=== PATIENT | female | born 1960 | race Caucasian/White ===

== ENCOUNTER 2018-07-22 19:30 | Emergency (ER) | payer BC ==
[2018-07-22] MEDS ORDERED: NS 500 ML IV ONE (20:17)
--- NOTE | 2018-07-22 20:24 | EDPHY ---
H & P Time Seen by Provider: 07/22/18 19:55 HPI/ROS: CHIEF COMPLAINT: "I do not feel great" HISTORY OF PRESENT ILLNESS: Patient is a 58-year-old female who presents emergency department with multiple complaints. The patient states that she felt ill over the weekend. She 1st noticed palpitations on Friday. She was seen at an outside urgent care and then emergency department. She was ultimately sent home. On Friday she developed a fever to 101. She had mild abdominal discomfort with diarrhea. No nausea or vomiting. 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 She continues to feel fatigued and not herself. She is mildly lightheaded. She currently has no abdominal pain. No nausea vomiting. The patient denies dysuria frequency. No cough or shortness of breath. No chest pain. The patient was concerned that her symptoms could be related to altitude illness. The patient moved here from [place] 3 weeks ago. REVIEW OF SYSTEMS: My complete review of systems is negative except as mentioned in the HPI. Past Medical/Surgical History: Includes liver hematoma, traumatic brain injury, panic attack, renal insufficiency Past surgical history: Tubal ligation Smoking Status: Never smoked Physical Exam: Vitals noted GENERAL: Well-appearing, in no acute distress, alert. HEENT: Eyes normal to inspection, normal pharynx, no signs of dehydration. NECK: No thyromegaly, no lymphadenopathy, supple. RESPIRATORY: Clear to auscultation bilaterally, no rales, rhonchi or wheezing. CVS: Regular rate and rhythm, no rubs, murmurs, or gallops. ABDOMEN: Soft, nontender, nondistended, no organomegaly. BACK: Normal to inspection, no CVA tenderness. SKIN: Normal color, no rash, warm, dry. No pallor. EXTREMITIES: No pedal edema, no calf tenderness, no Homans sign or cords, no joint swelling. NEURO/PSYCH: Alert and oriented x3, normal mood and affect, normal motor sensory exam. Constitutional: Initial Vital Signs Temperature (C) 37.1 C 07/22/18 19:36 Heart Rate 73 07/22/18 19:36 Respiratory Rate 18 07/22/18 19:36 Blood Pressure 113/74 07/22/18 19:36 O2 Sat (%) 97 07/22/18 19:36 O2 Delivery Mode Room Air Allergies/Adverse Reactions: erythromycin base Allergy (Verified 07/22/18 19:35) iodine Allergy (Verified 07/22/18 19:35) Penicillins Allergy (Verified 07/22/18 19:35) Home Medications: Medication Instructions Recorded NK [No Known Home Meds] 07/22/18 Medical Decision Making ED Course/Re-evaluation: In the emergency department I discussed possible etiologies with the patient. I answered all her questions. IV was placed. Laboratory studies and EKG were ordered. EKG shows normal sinus rhythm, normal rate, normal axis, normal intervals. There are no ST or T-wave abnormalities. CBC, chemistry and LFTs were unremarkable. Troponin was negative. UA unremarkable. I discussed the results with the patient. Answered all her questions. She was given warnings prior to leaving. She will return with worsening symptoms. Differential Diagnosis: My differential includes but is not limited to electrolyte abnormality, sugar abnormality, ACS, acute MD, dysrhythmia, urinary tract infection - Data Points Laboratory Results: Laboratory Results 07/22/18 20:43 07/22/18 20:43 07/22/18 07/22/18 07/22/18 20:48 20:45 20:43 WBC RBC Hgb Hct MCV MCH MCHC RDW Plt Count MPV Neut % (Auto) Lymph % (Auto) Collin % (Auto) Eos % (Auto) Baso % (Auto) Nucleat RBC Rel Count Absolute Neuts (auto) Absolute Lymphs (auto) Absolute Monos (auto) Absolute Eos (auto) Absolute Basos (auto) Absolute Nucleated RBC Immature Gran % Immature Gran # Sodium 139 mEq/L mEq/L (135-145) Potassium 3.9 mEq/L mEq/L (3.3-5.0) Chloride 102 mEq/L mEq/L (97-110) Carbon Dioxide 27 mEq/l mEq/l (22-31) Anion Gap 10 mEq/L mEq/L (8-16) BUN 7 mg/dL mg/dL (7-23) Creatinine 0.6 mg/dL mg/dL (0.6-1.0) Estimated GFR > 60 Glucose 99 mg/dL mg/dL (70-100) Calcium 9.6 mg/dL mg/dL (8.5-10.4) Total Bilirubin 0.4 mg/dL mg/dL (0.1-1.4) Conjugated Bilirubin 0.1 mg/dL mg/dL (0.0-0.5) Unconjugated Bilirubin 0.3 mg/dL mg/dL (0.0-1.1) AST 30 IU/L IU/L (14-46) ALT 34 IU/L IU/L (9-52) Alkaline Phosphatase 69 IU/L IU/L (38-126) POC Troponin I 0.01 ng/mL ng/mL (0.00-0.08) Total Protein 7.1 g/dL g/dL (6.3-8.2) Albumin 4.3 g/dL g/dL (3.5-5.0) Urine Color COLORLESS Urine Appearance CLEAR Urine pH 8.0 H (5.0-7.5) Ur Specific Myra < 1.001 L (1.002-1.030) Urine Protein NEGATIVE (NEGATIVE) Urine Ketones NEGATIVE (NEGATIVE) Urine Blood NEGATIVE (NEGATIVE) Urine Nitrate NEGATIVE (NEGATIVE) Urine Bilirubin NEGATIVE (NEGATIVE) Urine Urobilinogen NEGATIVE EU EU (0.2-1.0) Ur Leukocyte Esterase NEGATIVE (NEGATIVE) Urine RBC 1-3 /hpf /hpf (0-3) Urine WBC 0-1 /hpf /hpf (0-3) Ur Epithelial Cells NONE SEEN /lpf /lpf (NONE-1+) Urine Mucus TRACE /lpf /lpf (NONE-1+) Urine Glucose NEGATIVE (NEGATIVE) 07/22/18 20:43 WBC 5.56 10^3/uL 10^3/uL (3.80-9.50) RBC 4.87 10^6/uL 10^6/uL (4.18-5.33) Hgb 14.3 g/dL g/dL (12.6-16.3) Hct 42.0 % % (38.0-47.0) MCV 86.2 fL fL (81.5-99.8) MCH 29.4 pg pg (27.9-34.1) MCHC 34.0 g/dL g/dL (32.4-36.7) RDW 13.1 % % (11.5-15.2) Plt Count 249 10^3/uL 10^3/uL (150-400) MPV 9.3 fL fL (8.7-11.7) Neut % (Auto) 60.7 % % (39.3-74.2) Lymph % (Auto) 29.0 % % (15.0-45.0) Collin % (Auto) 8.8 % % (4.5-13.0) Eos % (Auto) 0.7 % % (0.6-7.6) Baso % (Auto) 0.4 % % (0.3-1.7) Nucleat RBC Rel Count 0.0 % % (0.0-0.2) Absolute Neuts (auto) 3.38 10^3/uL 10^3/uL (1.70-6.50) Absolute Lymphs (auto) 1.61 10^3/uL 10^3/uL (1.00-3.00) Absolute Monos (auto) 0.49 10^3/uL 10^3/uL (0.30-0.80) Absolute Eos (auto) 0.04 10^3/uL 10^3/uL (0.03-0.40) Absolute Basos (auto) 0.02 10^3/uL 10^3/uL (0.02-0.10) Absolute Nucleated RBC 0.00 10^3/uL 10^3/uL (0-0.01) Immature Gran % 0.4 % % (0.0-1.1) Immature Gran # 0.02 10^3/uL 10^3/uL (0.00-0.10) Sodium Potassium Chloride Carbon Dioxide Anion Gap BUN Creatinine Estimated GFR Glucose Calcium Total Bilirubin Conjugated Bilirubin Unconjugated Bilirubin AST ALT Alkaline Phosphatase POC Troponin I Total Protein Albumin Urine Color Urine Appearance Urine pH Ur Specific Myra Urine Protein Urine Ketones Urine Blood Urine Nitrate Urine Bilirubin Urine Urobilinogen Ur Leukocyte Esterase Urine RBC Urine WBC Ur Epithelial Cells Urine Mucus Urine Glucose Medications Given: Discontinued Medications Sodium Chloride (Ns) 500 mls @ 1,000 mls/hr IV EDNOW ONE PRN Reason: Protocol Stop: 07/22/18 20:46 Last Admin: 07/22/18 21:00 Dose: Not Given Point of Care Test Results: Chemistry 07/22/18 20:48 POC Troponin I 0.01 ng/mL ng/mL (0.00-0.08) Departure - Departure Disposition: Home, Routine, Self-Care Clinical Impression: Weakness Condition: Good Instructions: Weakness (ED), Lightheadedness (ED) Additional Instructions: Return with increasing weakness, lightheadedness, chest pain, shortness of breath or any other concerns. Referrals: SAMANTHA FARRELL [Other] - 2-3 days, if not improved
[2018-07-22 21:01] LABS: PLATELET COUNT 249 10^3/uL (150-400)
[2018-07-22 21:35] VITALS: BP 118/80
== END 2018-07-22 21:35 | disposition home or self-care (01) ==
DX: R53.83 Other fatigue (principal); R50.9 Fever, unspecified; R19.7 Diarrhea, unspecified
CPT/HCPCS: 84484-PO